=== PATIENT | female | born 1995 | race Caucasian/White ===

== ENCOUNTER 2022-06-01 11:09 | Emergency (ER) | payer OTHER ==
[~2022-06-01] VITALS: Ht 162.6 cm; Wt 68.0 kg
--- NOTE | 2022-06-01 11:30 | NUR ---
RECEVED PT 26 YRS FEMALE CAME FROM HOME walking in c/o tooth pain for 3 days no draning no bleeding
--- NOTE | 2022-06-01 11:45 | NUR ---
SEEN BY DR. CARO
--- NOTE | 2022-06-01 11:50 | NUR ---
PT DINESES ANY PREGANCY AND LMP 05/13/22
[2022-06-01] MEDS ORDERED: KETOROLAC TROMETHAMINE INJ 30 MG/ML VIAL ONE (11:55)
[2022-06-01] MEDS ORDERED: KETOROLAC TROMETHAMINE INJ 30 MG/ML VIAL IM ONE (12:00)
--- NOTE | 2022-06-01 12:13 | NUR ---
COVID SWAP AND FLUI SWAB SENT TO LAB
--- NOTE | 2022-06-01 13:00 | NUR ---
Anneliese for lab result
[2022-06-01] MEDS ORDERED: HYDR-4209 PO ×2 (13:07→13:11)
[2022-06-01] MEDS ORDERED: IBUP-1957 PO (13:07)
--- NOTE | 2022-06-01 13:18 | NUR ---
Patient discharged to home in stable condition. Written and verbal after care instructions given. Patient verbalizes understanding of instruction. pain reduced and felling beatter
[2022-06-01 13:22] VITALS: BP 119/81
--- NOTE | 2022-06-01 13:42 | NUR ---
LAB CALLED, PT IS COVID 19 POSITIVE.
== END 2022-06-01 13:23 | disposition home or self-care (01) ==
LOC: ER 11:13
DX: U07.1 COVID-19 (principal); K08.89 Other specified disorders of teeth and supporting structures; Z88.2 Allergy status to sulfonamides
CPT/HCPCS: 99283; 87426; 96372; 87804; J1885; C9803

== ENCOUNTER 2022-12-15 10:19 | Emergency (ER) | payer OTHER ==
[~2022-12-15] VITALS: Ht 162.6 cm; Wt 65.8 kg
[~2022-12-15 10:19] MED LIST: HYDR-4209 PO; IBUP-1957 PO
[2022-12-15 10:23] VITALS: BP 120/69
--- NOTE | 2022-12-15 10:24 | NUR ---
c/o left foot pain x 2 weeks, 8/10 pain scale
--- NOTE | 2022-12-15 10:48 | NUR ---
Patient discharged to home in stable condition. Written and verbal after care instructions given. Patient verbalizes understanding of instruction.
== END 2022-12-15 10:49 | disposition home or self-care (01) ==
LOC: ER 10:23
DX: M72.2 Plantar fascial fibromatosis (principal); Z79.899 Other long term (current) drug therapy; Z88.2 Allergy status to sulfonamides; Z88.1 Allergy status to other antibiotic agents

== ENCOUNTER 2023-01-17 09:51 | Emergency (ER) | payer OTHER ==
[~2023-01-17] VITALS: Ht 152.4 cm; Wt 65.8 kg
[2023-01-17 09:55] VITALS: BP 137/76
--- NOTE | 2023-01-17 09:55 | NUR ---
C/O PAIN IN SOLE OF FOOT,LEFT, SEEN HERE LAST MONTH FOR PLANTAR FASCIITIS
[2023-01-17] MEDS ORDERED: IBUP-1957 PO (10:52)
== END 2023-01-17 10:56 | disposition home or self-care (01) ==
LOC: ER 09:56
DX: M79.672 Pain in left foot (principal); Z79.899 Other long term (current) drug therapy; Z88.2 Allergy status to sulfonamides; Z88.1 Allergy status to other antibiotic agents
CPT/HCPCS: 73630-TC

== ENCOUNTER 2023-05-06 18:57 | Emergency (ER) | payer OTHER ==
[~2023-05-06] VITALS: Ht 162.6 cm; Wt 63.5 kg
[2023-05-06 21:21] VITALS: TEMP 97.3
[2023-05-06 21:30] VITALS: BP 127/88; O2SAT 99
[2023-05-06] MEDS ORDERED: IV NS 0.9% 1,000 ML BAG IV ONE (21:30)
[2023-05-06] MEDS ORDERED: ONDANSETRON HCL/PF 4 MG/2 ML VIAL IVP ONE (21:30)
[2023-05-06] MEDS ORDERED: ONDANSETRON HCL/PF 4 MG/2 ML VIAL ONE ×2 (21:40→23:29)
[2023-05-06 22:00] LABS: APPEARANCE,URINE CLEAR (CLEAR); BILIRUBIN,URINE 1+ (NEGATIVE); BLOOD, URINE NEGATIVE Ery/uL (NEGATIVE); COLOR,URINE YELLOW (YELLOW); KETONES,URINE 3+ mg/dL (NEGATIVE); LEUKOCYTE ESTERASE ,URINE NEGATIVE (NEGATIVE); NITRITE, URINE NEGATIVE (NEGATIVE); PROTEIN,URINE 1+ mg/dl (NEGATIVE); UGLUCOSE NEGATIVE (NEGATIVE); UROBILINOGEN,URINE 0.2 EU/dL (0.2)
[2023-05-06 22:04] LABS: ADD URINE CULTURE NO; BACTERIA,URINE RARE /HPF (None Seen); RBC,URINE 0-2 /HPF (0-2); WBC,URINE 0-2 /HPF (0-3)
[2023-05-06 22:05] LABS: MUCUS,URINE Few /LPF (None Seen)
[2023-05-06 22:15] LABS: BASOPHILS % (AUTO) 0.3 % (0.0-2.0); HEMATOCRIT 45 % (33-45); HEMOGLOBIN 14.9 g/dL (11.5-14.8); LYMPHOCYTES # (AUTO) 0.9 K/uL (0.8-4.8); LYMPHOCYTES % (AUTO) 7.8 % (20.0-44.0); MEAN CORPUSCULAR HEMOGLOBIN 31 PG (26.0-33.0); MEAN CORPUSCULAR HGB CONC 34 g/dl (31.0-36.0); MEAN CORPUSCULAR VOLUME 92 fL (82-100); MONOCYTES # (AUTO) 0.4 K/uL (0.1-1.30); MONOCYTES % (AUTO) 3.5 % (2.0-12.0); NEUTROPHILS # (AUTO) 10.4 K/uL (1.8-8.9); NEUTROPHILS % (AUTO) 88.4 % (43.0-81.0); PLATELET COUNT (AUTO) 244 K/uL (150-450); RED BLOOD CELL COUNT(AUTO) 4.84 MIL/uL (4.0-5.2); RED CELL DISTRIBUTION WIDTH 12.9 % (11.5-15.0); WHITE BLOOD COUNT (AUTO) 11.7 K/uL (4.3-11.0)
[2023-05-06 22:54] LABS: CALCIUM, SERUM 10.1 mg/dL (8.5-10.1); CREATININE 0.8 mg/dL (0.6-1.3); POTASSIUM 3.7 mmol/L (3.5-5.1)
[2023-05-06 23:00] LABS: ALBUMIN 4.3 g/dL (3.4-5.0); BILIRUBIN,DIRECT 0.2 mg/dL (0.0-0.2); BILIRUBIN,TOTAL 0.7 mg/dL (0.2-1.0); TOTAL PROTEIN, SERUM 8.1 g/dL (6.4-8.2)
[2023-05-06] MEDS ORDERED: ONDANSETRON HCL/PF 4 MG/2 ML VIAL IV ONE (23:30)
[2023-05-06] MEDS ORDERED: ONDA4TAB5 PO (23:34)
== END 2023-05-06 23:45 | disposition home or self-care (01) ==
LOC: ER 19:07
DX: O21.0 Mild hyperemesis gravidarum (principal); R10.2 Pelvic and perineal pain; Z79.899 Other long term (current) drug therapy; Z88.2 Allergy status to sulfonamides; Z88.1 Allergy status to other antibiotic agents
CPT/HCPCS: 99284; 96374; 96361; 96376; 85025; 80048; 83690; 80076; 81001; 36415; 84702; J2405 ×2; J7030

== ENCOUNTER 2023-08-07 10:10 | Emergency (ER) | payer OTHER ==
[~2023-08-07] VITALS: Ht 162.6 cm; Wt 61.2 kg
[~2023-08-07 10:10] MED LIST changes: +ONDA4TAB5 PO
[2023-08-07] MEDS ORDERED: IBUPROFEN 600 MG TABLET ONE (11:07)
[2023-08-07] MEDS ORDERED: IBUPROFEN 600 MG TABLET PO ONE (11:30)
[2023-08-07 11:31] VITALS: BP 127/66; TEMP 98.7; O2SAT 98
== END 2023-08-07 11:30 | disposition home or self-care (01) ==
LOC: ER 10:17
DX: U07.1 COVID-19 (principal); B34.9 Viral infection, unspecified; Z79.899 Other long term (current) drug therapy; Z98.890 Other specified postprocedural states; Z88.2 Allergy status to sulfonamides; Z88.1 Allergy status to other antibiotic agents
CPT/HCPCS: 99283; 87426; 87804 ×2; C9803

== ENCOUNTER 2023-09-19 04:06 | Emergency (ER) | payer OTHER ==
[~2023-09-19] VITALS: Ht 165.1 cm; Wt 61.2 kg
[2023-09-19] MEDS ORDERED: HALOPERIDOL LACTATE INJ 5 MG/ML VIAL ONE (06:29)
[2023-09-19] MEDS ORDERED: ONDANSETRON HCL/PF 4 MG/2 ML VIAL ONE (06:29)
[2023-09-19] MEDS ORDERED: ONDANSETRON HCL/PF 4 MG/2 ML VIAL IVP ONE (06:30)
[2023-09-19] MEDS ORDERED: HALOPERIDOL LACTATE INJ 5 MG/ML VIAL IV ONE (06:30)
[2023-09-19] MEDS ORDERED: IV NS 0.9% 1,000 ML BAG IV ONE ×2 (06:30→07:30)
[2023-09-19 06:34] LABS: BASOPHILS # (AUTO) 0.1 K/uL (0.0-0.2); BASOPHILS % (AUTO) 0.2 % (0.0-2.0); EOSINOPHILS # (AUTO) 0.1 K/uL (0.0-0.7); EOSINOPHILS % (AUTO) 0.3 % (0.0-6.0); HEMATOCRIT 43 % (33-45); HEMOGLOBIN 14.1 g/dL (11.5-14.8); LYMPHOCYTES % (AUTO) 12.6 % (20.0-44.0); MEAN CORPUSCULAR HEMOGLOBIN 30 PG (26.0-33.0); MEAN CORPUSCULAR HGB CONC 33 g/dl (31.0-36.0); MEAN CORPUSCULAR VOLUME 92 fL (82-100); MONOCYTES # (AUTO) 1.3 K/uL (0.1-1.30); MONOCYTES % (AUTO) 5.3 % (2.0-12.0); NEUTROPHILS # (AUTO) 19.4 K/uL (1.8-8.9); NEUTROPHILS % (AUTO) 81.6 % (43.0-81.0); PLATELET COUNT (AUTO) 238 K/uL (150-450); RED BLOOD CELL COUNT(AUTO) 4.66 MIL/uL (4.0-5.2); RED CELL DISTRIBUTION WIDTH 13.4 % (11.5-15.0); WHITE BLOOD COUNT (AUTO) 23.7 K/uL (4.3-11.0)
[2023-09-19 06:53] LABS: CALCIUM, SERUM 9.5 mg/dL (8.5-10.1); CREATININE 0.8 mg/dL (0.6-1.3); POTASSIUM 3.8 mmol/L (3.5-5.1)
[2023-09-19 07:00] LABS: ALBUMIN 4.1 g/dL (3.4-5.0); BILIRUBIN,DIRECT 0.1 mg/dL (0.0-0.2); BILIRUBIN,TOTAL 0.4 mg/dL (0.2-1.0); TOTAL PROTEIN, SERUM 7.8 g/dL (6.4-8.2)
[2023-09-19 07:58] VITALS: BP 99/45; TEMP 98.1; O2SAT 98
== END 2023-09-19 07:59 | disposition left against medical advice (07) ==
LOC: ER 04:06
DX: D72.829 Elevated white blood cell count, unspecified (principal); R73.9 Hyperglycemia, unspecified; R11.2 Nausea with vomiting, unspecified; Z98.890 Other specified postprocedural states; Z79.899 Other long term (current) drug therapy; Z88.1 Allergy status to other antibiotic agents; Z88.2 Allergy status to sulfonamides
CPT/HCPCS: 99284; 96374; 96361; 96375; 85025; 80048; 83690; 80076; 36415; J1630; J2405; J7030

== ENCOUNTER 2025-05-06 01:15 | Emergency (ER) | payer OTHER ==
[~2025-05-06] VITALS: Ht 165.1 cm; Wt 54.4 kg
[2025-05-06] MEDS ORDERED: ONDANSETRON HCL/PF 4 MG/2 ML VIAL ONE ×2 (02:07→03:27)
[2025-05-06 02:08] LABS: PLATELET COUNT (AUTO) 242 K/uL (150-450); RED BLOOD CELL COUNT(AUTO) 4.59 MIL/uL (4.0-5.2); RED CELL DISTRIBUTION WIDTH 13.1 % (11.5-15.0); WHITE BLOOD COUNT (AUTO) 11.6 K/uL (4.3-11.0)
[2025-05-06] MEDS: ONDANSETRON HCL/PF - ER 4 MG/2 ML VIAL IV ONE ×2 (02:15→03:32)
[2025-05-06 02:17] LABS: CALCIUM, SERUM 9.3 mg/dL (8.5-10.1); CREATININE 0.9 mg/dL (0.6-1.3); SODIUM SERUM 137 mmol/L (136-145); UREA NITROGEN, BLOOD 17 mg/dL (7-18)
[2025-05-06 02:22] LABS: ASPARTATE AMINOTRANSFERASE 35 U/L (15-37); TOTAL PROTEIN, SERUM 7.9 g/dL (6.4-8.2)
[2025-05-06 02:29] LABS: ALCOHOL, BLOOD < 3 mg/dL (0-10)
[2025-05-06] MEDS ORDERED: ONDA4TAB5 PO (03:40)
[2025-05-06] MEDS: IV NS 0.9% 1,000 ML IV ONE (03:44)
[2025-05-06] MEDS ORDERED: OLAN5TAB3 PO (04:26)
[2025-05-06] MEDS: OLANZAPINE 5 MG TABLET PO ONE (04:28)
[2025-05-06] MEDS ORDERED: OLANZAPINE ZYDIS 5 MG TAB.RAPDIS ONE (04:28)
[2025-05-06] MEDS ORDERED: OLANZAPINE 10 MG VIAL IM ONE (04:42)
[2025-05-06 04:54] LABS: APPEARANCE,URINE CLEAR (CLEAR); BLOOD, URINE 3+ Ery/uL (NEGATIVE); LEUKOCYTE ESTERASE ,URINE NEGATIVE (NEGATIVE); NITRITE, URINE NEGATIVE (NEGATIVE); UGLUCOSE NEGATIVE (NEGATIVE)
[2025-05-06] MEDS: OLANZAPINE 10 MG VIAL IM ONE (04:54)
[2025-05-06 04:55] VITALS: BP 134/89; TEMP 98.5; O2SAT 100
[2025-05-06 05:01] LABS: ADD URINE CULTURE NO; PREGNANCY TEST URINE QUAL NEGATIVE (NEGATIVE); SQUAMOUS EPITHELIAL CELL,UR Few /HPF (None Seen)
[2025-05-06 05:09] LABS: AMPHETAMINE, URINE NEGATIVE (NEGATIVE); BARBITURATE, URINE NEGATIVE (NEGATIVE); BENZODIAZEPINE, URINE NEGATIVE (NEGATIVE); COCCAINE, URINE NEGATIVE (NEGATIVE); OPIATE, URINE NEGATIVE (NEGATIVE)
[2025-05-06 05:15] LABS: CANNABINOID, URINE POSITIVE (NEGATIVE)
== END 2025-05-06 04:56 | disposition home or self-care (01) ==
LOC: ER 01:18
DX: R11.2 Nausea with vomiting, unspecified (principal); Z79.1 Long term (current) use of non-steroidal anti-inflammatories (NSAID); Z88.2 Allergy status to sulfonamides; Z90.49 Acquired absence of other specified parts of digestive tract; Z79.899 Other long term (current) drug therapy
CPT/HCPCS: 99284; 96372; 96374; 96361; 96376; 85025; 83690; 84703; 81001; 36415; 80053; 80320; 80307; J2405 ×4; J7030; J3490; G0480

== ENCOUNTER 2025-08-05 21:15 | Emergency (ER) | payer OTHER ==
[~2025-08-05 21:15] MED LIST changes: +OLAN5TAB3 PO
== END 2025-08-05 23:17 | disposition left against medical advice (07) ==
LOC: ER 21:17
DX: Z53.21 Procedure and treatment not carried out due to patient leaving prior to being seen by health care provider (principal)